=== PATIENT | female | born 1950 | race African-American/Black ===

== ENCOUNTER 2016-08-20 08:31 | Emergency (ER) | payer MEDICAID, MEDICARE ==
[~2016-08-20] VITALS: Ht 167.6 cm; Wt 85.0 kg
[2016-08-20 08:39] VITALS: BP 134/90
[2016-08-20] MEDS ORDERED: RIVA10TA PO (08:45)
[2016-08-20] MEDS ORDERED: LOSA50TA20 PO (08:45)
[2016-08-20] MEDS ORDERED: ATOR10TA PO (08:45)
[2016-08-20] MEDS ORDERED: DIGO250T4 PO (08:45)
[2016-08-20] MEDS ORDERED: AMLO2.5T45 PO (08:45)
[2016-08-20] MEDS ORDERED: CARV6.2548 PO (08:45)
== END 2016-08-20 13:35 | disposition left against medical advice (07) ==
LOC: ER 12:51
DX: M25.551 Pain in right hip (principal); Z53.21 Procedure and treatment not carried out due to patient leaving prior to being seen by health care provider

== ENCOUNTER 2016-08-20 19:21 | Emergency (ER) | payer MEDICARE ==
[~2016-08-20] VITALS: Ht 167.6 cm; Wt 84.0 kg
[~2016-08-20 19:21] MED LIST: AMLO2.5T45 PO; ATOR10TA PO; CARV6.2548 PO; DIGO250T4 PO; LOSA50TA20 PO; RIVA10TA PO
[2016-08-20 23:38] LABS: CLARITY URINE CLEAR (CLEAR); COLOR URINE YELLOW (YELLOW); GLUCOSE URINE NEGATIVE (NEGATIVE); KETONES URINE NEGATIVE (NEGATIVE); LEUKOCYTE ESTERASE URINE TRACE (NEGATIVE); NITRITE URINE NEGATIVE (NEGATIVE); OCCULT BLOOD URINE NEGATIVE (NEGATIVE); PROTEIN URINE NEGATIVE (NEGATIVE); SPECIFIC GRAVITY URINE 1.012 (1.005-1.030); UROBILINOGEN URINE 0.2 E.U./dL (0.2-1.0)
[2016-08-20] MEDS ORDERED: IBUPROFEN 600MG TABLET PO ONE (23:45)
[2016-08-21 00:50] VITALS: BP 134/72
== END 2016-08-21 01:35 | disposition home or self-care (01) ==
LOC: ER 19:21
DX: M54.41 Lumbago with sciatica, right side (principal); M51.36 Other intervertebral disc degeneration, lumbar region; M47.9 Spondylosis, unspecified; I10 Essential (primary) hypertension; E11.9 Type 2 diabetes mellitus without complications; I25.2 Old myocardial infarction; Z79.01 Long term (current) use of anticoagulants
CPT/HCPCS: 72100; 81001; 99285

== ENCOUNTER 2018-03-21 22:01 | Emergency (ER) | payer MEDICARE ==
[~2018-03-21] VITALS: Ht 167.6 cm; Wt 83.0 kg
[2018-03-22] MEDS ORDERED: ONDANSETRON HCL 4MG/2ML INJ IV STA (00:49)
[2018-03-22] MEDS ORDERED: FAMOTIDINE 20MG/2ML VIAL IV STA (00:49)
[2018-03-22] MEDS ORDERED: ENALAPRIL 2.5MG/2ML VIAL 2ML IV ONE (01:00)
[2018-03-22 01:48] LABS: BASOPHILS % 0.3 % (0.0-2.0); HEMATOCRIT. 48.6 % (36.0-48.0); HEMOGLOBIN. 15.4 g/dL (12.0-16.0); LYMPHOCYTES % 11.6 % (20.0-50.0); MEAN CORPUSCULAR HEMOGLOBIN 26.1 pg (28.0-32.0); MEAN CORPUSCULAR VOLUME 81.9 fL (81.0-99.0); MEAN PLATELET VOLUME 10.5 fl (7.4-10.4); MONOCYTES % 3.7 % (2.0-8.0); NEUTROPHILS % 84.4 % (40.0-76.0); PLATELET 262 x1000/uL (130-400); RED BLOOD CELL COUNT 5.93 mill/uL (4.2-5.4); RED CELL DISTRIBUTION WIDTH 15.4 % (11.6-14.6)
[2018-03-22 01:53] LABS: CHLORIDE 103 mEq/L (98-107)
[2018-03-22 02:18] LABS: DIGOXIN 0.5 ng/mL (0.9-2.0)
[2018-03-22 05:00] VITALS: BP 176/88
== END 2018-03-22 05:03 | disposition home or self-care (01) ==
LOC: ER 22:01
DX: R10.9 Unspecified abdominal pain (principal); R11.2 Nausea with vomiting, unspecified; E11.9 Type 2 diabetes mellitus without complications; I48.91 Unspecified atrial fibrillation; I11.9 Hypertensive heart disease without heart failure; J45.909 Unspecified asthma, uncomplicated; D72.829 Elevated white blood cell count, unspecified; Z79.01 Long term (current) use of anticoagulants
CPT/HCPCS: 36415; 71045; 74176; 80053; 80162; 83690; 84484; 85025; 93005; 96374; 96375; 99284; J2405; J3490